=== PATIENT | male | born 1985 | race Caucasian/White ===

== ENCOUNTER 2018-04-16 19:20 | Emergency (ER) | payer SELFPAY ==
[2018-04-16] MEDS ORDERED: LIDOCAINE 1% MPF 5 ML VIAL ONE (19:51)
--- NOTE | 2018-04-16 20:37 | RAD REPORT ---
EXAM DESCRIPTION: RAD - Ankle Right 3 View - 04/16/2018 8:08 pm CLINICAL HISTORY: Trauma to the ankle, anterior laceration COMPARISON: None. FINDINGS: No fracture, dislocation or periosteal reaction. No joint effusion seen. No joint space na rrowing. Soft tissue wound is seen anterior to the tibiotalar joint line. Air is seen in the soft tis sues. No foreign body. IMPRESSION: Anterior soft tissue wound with no foreign body. No acute bone or joint finding seen.
[2018-04-16] MEDS ORDERED: HYDROCODONE/APAP 10/325 TAB ONE (21:25)
--- NOTE | 2018-04-16 21:28 | ER ---
Nurse's Notes [facility] Name: Shon Zapata Age: 32 yrs Sex: Male : 1985 Arrival Date: 04/16/2018 Time: 19:22 Bed 27 Private MD: Diagnosis: Laceration without foreign body, right lower leg Presentation: 04/16 19:30 Presenting complaint: EMS states: tripped over fish tank and has 3-4 inch laceration to tl3 right lower leg, bleeding controlled, covered in wet gauze. Transition of care: patient was not received from another setting of care. Complicating Factors: Glass or an other foreign body is present in the wound. Onset of symptoms was April 16, 2018. Risk Assessment: Do you want to hurt yourself or someone else? Patient reports no desire to harm self or others. Initial Sepsis Screen: Does the patient meet any 2 criteria? No. Patient's initial sepsis screen is negative. Does the patient have a suspected source of infection? No. Patient's initial sepsis screen is negative. Care prior to arrival: dressing applied. 19:30 Method Of Arrival: EMS: [facility] tl3 19:30 Acuity: MANPREET 3 tl3 Triage Assessment: 19:33 General: Appears in no apparent distress. uncomfortable, well groomed, well developed, tl3 well nourished, Behavior is calm, cooperative, appropriate for age. Pain: Complains of pain in medial aspect of right calf Pain currently is 10 out of 10 on a pain scale. EENT: No deficits noted. Neuro: No deficits noted. Level of Consciousness is awake, alert, obeys commands, Oriented to person, place, time, situation, Appropriate for age. Cardiovascular: Patient's skin is warm and dry. Respiratory: Airway is patent Respiratory effort is even, unlabored, Respiratory pattern is regular, symmetrical. GI:. : No signs and/or symptoms were reported regarding the genitourinary system. Derm: Wound noted right lower leg. Injury Description: Laceration sustained to medial aspect of right calf is 2.6 to 7.5 cm long, not bleeding. Historical: - Allergies: 19:33 No Known Allergies; tl3 - Home Meds: 19:33 None [Active]; tl3 - PMHx: 19:33 None; tl3 - Immunization history:: Adult Immunizations up to date. - Social history:: Smoking status: unknown. - Ebola Screening: : No symptoms or risks identified at this time. - Family history:: not pertinent. - Hospitalizations: : No recent hospitalization is reported. Screenin:20 Abuse screen: Denies threats or abuse. Nutritional screening: No deficits noted. tl3 Tuberculosis screening: No symptoms or risk factors identified. Fall Risk None identified. Assessment: 20:20 Reassessment: No changes from previously documented assessment. Patient and/or family tl3 updated on plan of care and expected duration. Pain level reassessed. Patient is alert, oriented x 3, equal unlabored respirations, skin warm/dry/pink. no needs at this time, awaiting xray results. Musculoskeletal: No signs and/or symptoms reported regarding the musculoskeletal system. Injury Description: Laceration. 21:44 Reassessment: Patient appears in no apparent distress at this time. No changes from tl3 previously documented assessment. Patient and/or family updated on plan of care and expected duration. Pain level reassessed. Patient is alert, oriented x 3, equal unlabored respirations, skin warm/dry/pink. pt tolerated suturing very well. Vital Signs: 20:20 BP 150 / 73; Pulse 82; Resp 16; Pulse Ox 98% on R/A; tl3 21:44 BP 133 / 74; Pulse 72; Resp 16; Pulse Ox 100% on R/A; tl3 ED Course: 19:22 Patient arrived in ED. tl3 19:30 Carolina Lofton, GERMAINE is Primary Nurse. tl3 19:32 Triage completed. tl3 19:36 Frank Hunter MD is Attending Physician. rn 20:05 X-ray completed. Portable x-ray completed in exam room. Patient tolerated procedure bb2 well. 20:07 XRAY Ankle RIGHT 3 view In Process Unspecified. EDMS 20:20 Patient has correct armband on for positive identification. tl3 20:20 No provider procedures requiring assistance completed. Patient did not have IV access tl3 during this emergency room visit. 20:52 Irrigation of laceration on medial aspect of right calf irrigated with normal saline tl3 Betadine solution Patient tolerated well. 21:46 Arm band placed on. tl3 Administered Medications: 21:32 Drug: Lidocaine (1 %) 1 vials Volume: 20 ml; Route: Infiltration; Site: wound; tl3 21:32 Drug: [place] 10 mg-325 mg 1 tabs Route: PO; tl3 21:44 Follow up: Response: Medication administered at discharge. tl3 21:40 Drug: Doxycycline 100 mg Route: PO; tl3 21:44 Follow up: Response: Medication administered at discharge. tl3 Outcome: 21:27 Discharge ordered by . rn 21:44 Discharged to home ambulatory. tl3 21:44 Condition: good 21:44 Discharge instructions given to patient, family, Instructed on discharge instructions, follow up and referral plans. medication usage, wound care, Demonstrated understanding of instructions, follow-up care, medications, wound care, Prescriptions given X 1. 21:46 Patient left the ED. tl3 Signatures: Dispatcher [employer] EDMS Frank Hunter MD MD rn Bock, Brittany [facility] Carolina Lofton RN RN tl3
--- NOTE | 2018-04-16 21:28 | EDPHYS ---
Physician Documentation [facility] Name: Shon Zapata Age: 32 yrs Sex: Male : 1985 Arrival Date: 04/16/2018 Time: 19:22 Bed 27 Private MD: ED Physician Frank Hunter HPI: 04/16 21:23 This 32 yrs old Male presents to ER via EMS with complaints of Laceration To rn Leg. 21:23 The patient has a laceration occurred at home. The laceration(s) is(are) located on the rn right leg. Onset: The symptoms/episode began/occurred just prior to arrival. The patient has experienced similar episodes in the past. Reports laceration to right leg, clean aquarium broke, does not feel like any foreign bodies in leg. Tetanus updated earlier this year.. Historical: - Allergies: 19:33 No Known Allergies; tl3 - Home Meds: 19:33 None [Active]; tl3 - PMHx: 19:33 None; tl3 - Immunization history:: Adult Immunizations up to date. - Social history:: Smoking status: unknown. - Ebola Screening: : No symptoms or risks identified at this time. - Family history:: not pertinent. - Hospitalizations: : No recent hospitalization is reported. ROS: 21:23 Constitutional: Negative for fever, chills, and weight loss, MS/Extremity: + laceration rn to right leg 21:23 Neuro: Negative for headache, weakness, numbness, tingling, and seizure. rn Exam: 21:23 Constitutional: This is a well developed, well nourished patient who is awake, alert, rn and in no acute distress. MS/ Extremity: Pulses equal, no cyanosis. Neurovascular intact. Full, normal range of motion. Equal circumference. + 8cm irregular laceration that nicked fascia of distal right pre-tibial region, no tendon laceration, no arterial bleeding. Vital Signs: 20:20 BP 150 / 73; Pulse 82; Resp 16; Pulse Ox 98% on R/A; tl3 21:44 BP 133 / 74; Pulse 72; Resp 16; Pulse Ox 100% on R/A; tl3 Laceration: 21:23 Wound Repair of 8cm ( 3.1in ) subcutaneous laceration to right leg. Distal rn neuro/vascular/tendon intact. Anesthesia: Wound infiltrated with 5 mls of 1% lidocaine. Wound prep: Extensive cleansing by nurse, Wound irrigation by nurse, Wound explored extensively, Copious irrigation. Fascia closed with 3 4-0 Gut using interrupted sutures and sterile technique. Skin closed with 8 3-0 Prolene using interrupted sutures and sterile technique. Dressed with Kerlix. Patient tolerated well. MDM: 19:36 Patient medically screened. rn 21:26 Differential diagnosis: superficial laceration. Data reviewed: vital signs, nurses rn notes, radiologic studies, and as a result, I will discharge patient. Counseling: I had a detailed discussion with the patient and/or guardian regarding: the historical points, exam findings, and any diagnostic results supporting the discharge/admit diagnosis, radiology results, the need for outpatient follow up, to return to the emergency department if symptoms worsen or persist or if there are any questions or concerns that arise at home. Response to treatment: the patient's symptoms have markedly improved after treatment, and as a result, I will discharge patient. Special discussion: I discussed with the patient/guardian in detail that at this point there is no indication for admission to the hospital. It is understood, however, that if the symptoms persist or worsen the patient needs to return immediately for re-evaluation. 04/16 19:50 Order name: XRAY Ankle RIGHT 3 view; Complete Time: 20:43 rn 04/16 19:50 Order name: Suture Tray at Bedside; Complete Time: 21:32 rn 04/16 19:50 Order name: Wound Care; Complete Time: 21:32 rn Administered Medications: 21:32 Drug: Lidocaine (1 %) 1 vials Volume: 20 ml; Route: Infiltration; Site: wound; tl3 21:32 Drug: [place] 10 mg-325 mg 1 tabs Route: PO; tl3 21:44 Follow up: Response: Medication administered at discharge. tl3 21:40 Drug: Doxycycline 100 mg Route: PO; tl3 21:44 Follow up: Response: Medication administered at discharge. tl3 Disposition: 04/16/18 21:27 Discharged to Home. Impression: Laceration without foreign body, right lower leg. - Condition is Stable. - Discharge Instructions: Laceration Care, Adult. - Prescriptions for Doxycycline Monohydrate 100 mg Oral Tablet - take 1 tablet by ORAL route every 12 hours for 10 days; 20 tablet. - Medication Reconciliation Form, Thank You Letter, Antibiotic Education, Prescription Opioid Use form. - Follow up: Private Physician; When: As needed; Reason: Recheck today's complaints, Re-evaluation by your physician. - Problem is new. - Symptoms have improved. Signatures: Dispatcher [employer] EDFrank Glover MD MD rn Lowrey, Tammy, RN RN tl3 Corrections: (The following items were deleted from the chart) 21:46 21:27 04/16/2018 21:27 Discharged to Home. Impression: Laceration without foreign body, tl3 right lower leg. Condition is Stable. Forms are Medication Reconciliation Form, Thank You Letter, Antibiotic Education, Prescription Opioid Use. Follow up: Private Physician; When: As needed; Reason: Recheck today's complaints, Re-evaluation by your physician. Problem is new. Symptoms have improved. rn
[2018-04-16] MEDS ORDERED: DOXYCYCLINE 100 MG CAP PO ONE (21:38)
== END 2018-04-16 21:46 | disposition home or self-care (01) ==
LOC: ER 19:20
PROC: 0JQN0ZZ Repair Right Lower Leg Subcutaneous Tissue and Fascia, Open Approach (ICD-10-PCS; principal; 2018-04-16)
DX: S81.811A Laceration without foreign body, right lower leg, initial encounter (principal); W25.XXXA Contact with sharp glass, initial encounter; Y93.89 Activity, other specified; Y92.9 Unspecified place or not applicable
CPT/HCPCS: 99284

== ENCOUNTER 2021-12-28 23:14 | Emergency (ER) | payer SELFPAY ==
[2021-12-28] MEDS ORDERED: MORPHINE 4 MG/ML SYR ONE (23:48)
[2021-12-28] MEDS ORDERED: NA CHLORIDE 0.9% 1,000 ML ONE (23:48)
[2021-12-28] MEDS ORDERED: FAMOTIDINE 20 MG/2 ML VIAL IV ONE (23:48)
[2021-12-28] MEDS ORDERED: ONDANSETRON 4 MG/2 ML VIAL ONE (23:48)
[2021-12-29] MEDS ORDERED: MEPERIDINE HCL 25 MG/ML SYR ONE (00:11)
[2021-12-29 00:20] LABS: Absolute Lymphocytes (CBC) 1.5 K/uL (0.7-4.9); Hematocrit 45.4 % (39.6-49.0); Lymphocytes % 16.8 % (15.3-44.8); MPV 8.2 fL (7.6-11.3); RBC Red Blood Cell Count 5.11 M/uL (4.33-5.43)
[2021-12-29 00:29] LABS: Albumin 3.8 g/dL (3.4-5.0); Bilirubin Total 0.3 mg/dL (0.2-1.0); Protein, Total 7.2 g/dL (6.4-8.2)
--- NOTE | 2021-12-29 01:48 | EDPHYS ---
Physician Documentation [facility] Name: Shon Zapata Age: 36 yrs Sex: Male : 1985 Arrival Date: 12/28/2021 Time: 23:16 Bed 6 Private MD: ED Physician Frank Hunter HPI: 12/28 23:48 This 36 yrs old Male presents to ER via Ambulatory with complaints of Abdominal Pain. rn 23:48 The patient presents with abdominal pain in the left lower quadrant. Onset: The rn symptoms/episode began/occurred 1 week(s) ago. The symptoms do not radiate. Associated signs and symptoms: Pertinent positives: nausea, Pertinent negatives: blood in stools, chest pain, constipation, diarrhea, dysuria, fever, shortness of breath, testicular pain, vomiting, vomiting blood. Modifying factors: The symptoms are alleviated by nothing, the symptoms are aggravated by touching the area. Severity of pain: At its worst the pain was moderate in the emergency department the pain is unchanged. The patient has experienced similar episodes in the past. The patient has not recently seen a physician. Pt reports left sided abd pain, began about 1 week ago, intermittent, similar episodes in past, but worse tonight. No urinary complaints. No hx of kidney stones. No trauma. No fever. No testicular pain or swelling. No drug use. States other times the pain went away on its own.. Historical: - Allergies: 23:29 No Known Allergies; jb4 - Home Meds: 23:29 None [Active]; jb4 - PMHx: 23:29 Unable to Obtain; jb4 - PSHx: 23:29 None; jb4 - Immunization history:: Adult Immunizations up to date. - Social history:: Smoking status: Patient denies any tobacco usage or history of. Patient uses street drugs, marijuana. - Family history:: not pertinent. - Hospitalizations: : No recent hospitalization is reported. ROS: 23:50 Constitutional: Negative for fever, chills, and weight loss, Eyes: Negative for injury, rn pain, redness, and discharge, Neck: Negative for injury, pain, and swelling, Cardiovascular: Negative for chest pain, palpitations, and edema, Respiratory: Negative for shortness of breath, cough, wheezing, and pleuritic chest pain, Abdomen/GI: + left sided and lower abd pain Back: Negative for injury and pain, : Negative for injury, bleeding, discharge, and swelling, MS/Extremity: Negative for injury and deformity, Skin: Negative for injury, rash, and discoloration, Neuro: Negative for headache, weakness, numbness, tingling, and seizure. Exam: 23:50 Constitutional: Thin male, appears uncomfortable but non-toxic, holding abdomen. rn Head/Face: Normocephalic, atraumatic. Eyes: Periorbital areas with no swelling, redness, or edema. Cardiovascular: Regular rate and rhythm. No pulse deficits. Respiratory: No increased work of breathing, no retractions or nasal flaring. Abdomen/GI: soft, + LUQ and LLQ tenderness, no peritoneal signs or masses. Skin: Warm, dry MS/ Extremity: Pulses equal, no cyanosis Neuro: Awake and alert, GCS 15 Vital Signs: 23:27 BP 134 / 89; Pulse 79; Resp 16; Temp 98.8(TE); Pulse Ox 100% on R/A; Weight 63.5 kg jb4 (R); Height 5 ft. 11 in. (180.34 cm) (R); Pain 7/10; 12/29 00:01 BP 129 / 94; Pulse 62; Resp 18 S; Pulse Ox 100% on R/A; as6 01:37 BP 135 / 94; Pulse 65; Resp 18 S; Pulse Ox 100% on R/A; as6 02:00 BP 137 / 96; Pulse 67; Resp 18 S; Pulse Ox 100% on R/A; as6 12/28 23:27 Body Mass Index 19.53 (63.50 kg, 180.34 cm) [facility] MDM: 12/28 23:22 Patient medically screened. rn 12/29 01:47 Differential diagnosis: appendicitis, bowel obstruction, diverticulitis, rn gastroesophageal reflux disease, non-specific abd pain, pancreatitis, Peptic Ulcer Disease. Data reviewed: vital signs, nurses notes, lab test result(s), radiologic studies, CT scan, and as a result, I will discharge patient. Counseling: I had a detailed discussion with the patient and/or guardian regarding: the historical points, exam findings, and any diagnostic results supporting the discharge/admit diagnosis, lab results, radiology results, the need for outpatient follow up, to return to the emergency department if symptoms worsen or persist or if there are any questions or concerns that arise at home. Response to treatment: the patient's symptoms have mildly improved after treatment, and as a result, I will discharge patient. Special discussion: Based on the patient's Hx, exam, and Dx evaluation, there is no indication for emergent surgery or inpatient Tx. It is understood by the patient/guardian that if the Sx's persist or worsen they need to return immediately for re-evaluation. I discussed with the patient/guardian in detail that at this point there is no indication for admission to the hospital. It is understood, however, that if the symptoms persist or worsen the patient needs to return immediately for re-evaluation. Based on the history and exam findings, there is no indication for further emergent testing or inpatient evaluation. I discussed with the patient/guardian the need to see the investment sales assistant for further evaluation of the symptoms. ED course: No acute findings in bloodwork or Ct abdomen. Recurrent abd pain in otherwise healthy young man, recommend antacids and GI f/u for further eval. Pt denies famhx of IBD.. 12/28 23:36 Order name: CBC with Diff; Complete Time: 00:30 rn 12/28 23:36 Order name: CMP; Complete Time: 00:30 rn 12/28 23:36 Order name: Lipase; Complete Time: 00:30 rn 12/28 23:36 Order name: CT Abd/Pelvis - IV Contrast Only rn 12/28 23:36 Order name: IV Saline Lock; Complete Time: 23:58 rn 12/28 23:36 Order name: Labs collected and sent; Complete Time: 23:58 rn Administered Medications: 12/28 23:40 Drug: Pepcid (famotidine) 20 mg Route: IVP; Site: right forearm; 12/29 02:13 Follow up: Response: No adverse reaction as12/28 23:40 Drug: Zofran (Ondansetron) 4 mg Route: IVP; Site: right forearm; 12/29 02:13 Follow up: Response: No adverse reaction 12/28 23:40 Drug: NS 0.9% 1000 ml Route: IV; Rate: 1000 ml; Site: right forearm; 12/29 02:13 Follow up: Response: No adverse reaction; IV Status: Completed infusion; IV Intake: as6 1000ml 12/28 23:59 Not Given (Patient Refused): morphine 4 mg IVP once as6 12/29 00:09 Drug: Demerol (meperidine) 25 mg Route: IVP; Site: right forearm; as6 02:13 Follow up: Response: No adverse reaction; RASS: Alert and Calm (0) as6 Disposition Summary: 12/29/21 01:48 Discharge Ordered Location: Home rn Problem: an acute exacerbation rn Symptoms: have improved rn Condition: Stable rn Diagnosis - Abdominal pain, unspecified rn Followup: rn - With: Jeronimo Rizo MD - When: As needed - Reason: Recheck today's complaints, Re-evaluation by your physician Discharge Instructions: - Discharge Summary Sheet rn - Abdominal Pain, Adult rn - Pain Without a Known Cause rn Forms: - Medication Reconciliation Form rn - Thank You Letter rn - Antibiotic internal medicine nurse - Prescription Opioid Use rn Signatures: Dispatcher [employer] Frank Jean MD MD rn Bryson, James RN RN jb4 Simone Vieyra RN RN as6
--- NOTE | 2021-12-29 01:48 | ER ---
Nurse's Notes [facility] Name: Shon Zapata Age: 36 yrs Sex: Male : 1985 Arrival Date: 12/28/2021 Time: 23:16 Bed 6 Private MD: Diagnosis: Abdominal pain, unspecified Presentation: 12/28 23:27 Chief complaint: Patient states: I am having Left lower abdominal pain that comes and jb4 goes. N/V/D reported. Coronavirus screen: At this time, the client does not indicate any symptoms associated with coronavirus-19. Ebola Screen: No symptoms or risks identified at this time. Initial Sepsis Screen: Does the patient meet any 2 criteria? No. Patient's initial sepsis screen is negative. Does the patient have a suspected source of infection? Yes:. Risk Assessment: Do you want to hurt yourself or someone else? Patient reports no desire to harm self or others. Onset of symptoms was December 28, 2021. Transition of care: patient was not received from another setting of care. 23:27 Method Of Arrival: Ambulatory jb4 23:27 Acuity: MANPREET 3 jb4 Historical: - Allergies: 23:29 No Known Allergies; jb4 - Home Meds: 23:29 None [Active]; jb4 - PMHx: 23:29 Unable to Obtain; jb4 - PSHx: 23:29 None; jb4 - Immunization history:: Adult Immunizations up to date. - Social history:: Smoking status: Patient denies any tobacco usage or history of. Patient uses street drugs, marijuana. - Family history:: not pertinent. - Hospitalizations: : No recent hospitalization is reported. Screenin/19 00:00 Abuse screen: Denies threats or abuse. Denies injuries from another. Nutritional as6 screening: No deficits noted. Tuberculosis screening: No symptoms or risk factors identified. Fall Risk None identified. Assessment: 12/28 23:35 General: Appears in no apparent distress. uncomfortable, ill, slender, Behavior is as6 calm, cooperative. Pain: Complains of pain in left lower quadrant Quality of pain is described as crampy, sharp, Is intermittent. Neuro: Level of Consciousness is awake, alert, obeys commands, Oriented to person, place, time, situation. Cardiovascular: JVD is absent Patient's skin is warm and dry. Respiratory: Respiratory effort is even, unlabored, Respiratory pattern is regular, symmetrical. GI: Reports lower abdominal pain, diarrhea, nausea, vomiting. Derm: Skin is intact. 12/29 01:38 Reassessment: Patient appears in no apparent distress at this time. as6 Vital Signs: 12/28 23:27 BP 134 / 89; Pulse 79; Resp 16; Temp 98.8(TE); Pulse Ox 100% on R/A; Weight 63.5 kg jb4 (R); Height 5 ft. 11 in. (180.34 cm) (R); Pain 7/10; 12/29 00:01 BP 129 / 94; Pulse 62; Resp 18 S; Pulse Ox 100% on R/A; as6 01:37 BP 135 / 94; Pulse 65; Resp 18 S; Pulse Ox 100% on R/A; as6 02:00 BP 137 / 96; Pulse 67; Resp 18 S; Pulse Ox 100% on R/A; as6 12/28 23:27 Body Mass Index 19.53 (63.50 kg, 180.34 cm) jb4 ED Course: 12/28 23:16 Patient arrived in ED. bp1 23:22 Frank Hunter MD is Attending Physician. rn 23:29 Triage completed. jb4 23:29 Arm band placed on right wrist. jb4 23:35 Inserted saline lock: 20 gauge in right forearm, using aseptic technique. Blood as6 collected. 23:40 Simone Vieyra, GERMAINE is Primary Nurse. as6 12/29 00:00 Bed in low position. Call light in reach. Side rails up X 1. Adult w/ patient. Pulse ox as6 on. NIBP on. Warm blanket given. 01:07 CT Abd/Pelvis - IV Contrast Only In Process Unspecified. EDMS 01:48 Jeronimo Rizo MD is Referral Physician. rn 02:13 No provider procedures requiring assistance completed. IV discontinued, intact, as6 bleeding controlled, No redness/swelling at site. Pressure dressing applied. Administered Medications: 12/28 23:40 Drug: Pepcid (famotidine) 20 mg Route: IVP; Site: right forearm; as6 12/29 02:13 Follow up: Response: No adverse reaction as6 12/28 23:40 Drug: Zofran (Ondansetron) 4 mg Route: IVP; Site: right forearm; as6 12/29 02:13 Follow up: Response: No adverse reaction as6 12/28 23:40 Drug: NS 0.9% 1000 ml Route: IV; Rate: 1000 ml; Site: right forearm; 6 12/29 02:13 Follow up: Response: No adverse reaction; IV Status: Completed infusion; IV Intake: as6 1000ml 12/28 23:59 Not Given (Patient Refused): morphine 4 mg IVP once 12/29 00:09 Drug: Demerol (meperidine) 25 mg Route: IVP; Site: right forearm; as6 02:13 Follow up: Response: No adverse reaction; RASS: Alert and Calm (0) as6 Medication: 02:14 VIS not applicable for this client. as6 Intake: 02:13 IV: 1000ml; Total: 1000ml. as6 Outcome: 01:48 Discharge ordered by . rn 02:14 Discharged to home ambulatory, with family. as6 02:14 Condition: stable 02:14 Discharge instructions given to patient, Instructed on discharge instructions, follow up and referral plans. Demonstrated understanding of instructions, follow-up care. 02:16 Patient left the ED. as6 Signatures: Dispatcher [employer] EDMS Frank Hunter MD MD rn Bryson, James RN RN jb4 Nani Medina Ashby, RN RN as6
[2021-12-29 02:21] VITALS: TEMP 98.8; O2SAT 100
[2021-12-29 02:27] VITALS: BP 137/96
--- NOTE | 2021-12-29 11:31 | RAD REPORT ---
EXAM DESCRIPTION: CT - Abdomen Pelvis W Contrast - 12/29/2021 4:20 am CLINICAL HISTORY: The patient is 36 years old and is Male; Abdominal pain, acute, nonlocalized TECHNIQUE: Axial computed tomography images of the abdomen and pelvis with intravenous contrast. S agittal and coronal reformatted images were created and reviewed. This CT exam was performed using one or more of the following dose reduction techniques: automated exposure control, adjustment of t he mA and/or kV according to patient size, and/or use of iterative reconstruction technique. COMPARISON: No relevant prior studies available. FINDINGS: LUNG BASES: Unremarkable. No mass. No consolidation. ABDOMEN: LIVER: Unremarkable. No mass. GALLBLADDER AND BILE DUCTS: No calcified stones. No ductal dilation. PANCREAS: No ductal dilation. No mass. SPLEEN: Unremarkable. ADRENALS: Unremarkable. No mass. KIDNEYS AND URETERS: Unremarkable. The kidneys enhance symmetrically. No obstructing renal or ur eteral calculus is seen. No hydronephrosis or hydroureter. No perinephric fluid or stranding. STOMACH AND BOWEL: The stomach is filled with fluid and air. The small bowel is relatively martha l in caliber. The distal small bowel is fluid-filled. Stool is present throughout colon. There is no bowel obstruction. PELVIS: APPENDIX: The appendix is normal in caliber without surrounding inflammation. BLADDER: The bladder is decompressed. REPRODUCTIVE: Unremarkable as visualized. ABDOMEN and PELVIS: INTRAPERITONEAL SPACE: Unremarkable. No free air. No significant fluid collection. BONES/JOINTS: No acute fracture. SOFT TISSUES: The soft tissues are normal. VASCULATURE: Unremarkable. No abdominal aortic aneurysm. LYMPH NODES: Unremarkable. No enlarged lymph nodes. IMPRESSION: No acute findings on this contrasted CT of the abdomen and pelvis to explain the patient 's symptoms. Electronically signed by: Domenica Love MD 12/29/2021 1:26 AM CDT Due to temporary technical issues with the PACS/Fluency reporting system, reports are being signed by the in house radiologist without review as a courtesy to ensure prompt reporting. The interpreting r adiologist is fully responsible for the content of the report.
== END 2021-12-29 02:16 | disposition home or self-care (01) ==
LOC: ER 23:14
DX: R10.32 Left lower quadrant pain (principal); R10.12 Left upper quadrant pain; R11.0 Nausea
CPT/HCPCS: 36415; 74177; 80053; 83690; 85025; 96361; 96374; 96375; 99284; J2175; J2405; J3490; J7030; Q9967

== ENCOUNTER 2023-04-24 17:38 | Emergency (ER) | payer SELFPAY ==
[2023-04-24] MEDS ORDERED: LIDOCAINE 1% MPF 30 ML VIAL ONE (18:22)
[2023-04-24] MEDS ORDERED: LIDOCAINE 2% W/EPI 1:200,000 MPF 20 ML VIAL IM ONE (18:24)
[2023-04-24] MEDS ORDERED: CEPHALEXIN 250 MG CAP ONE ×2 (18:27→18:38)
--- NOTE | 2023-04-24 18:35 | ER ---
Nurse's Notes [facility] Name: Shon Zapata Age: 37 yrs Sex: Male : 1985 Arrival Date: 04/24/2023 Time: 17:38 Bed 16 Private MD: Diagnosis: Arm Laceration Left/ Open wound of forearm;Laceration without foreign body of left forearm-WITH MUSCLE INVOLVMENT Presentation: 04/24 17:52 Chief complaint: Patient states: he fell off a tin roof and cut his arm on the metal. ap3 patient presents with his left arm wrapped in a tshirt. Coronavirus screen: At this time, the client does not indicate any symptoms associated with coronavirus-19. Ebola Screen: No symptoms or risks identified at this time. Initial Sepsis Screen: Does the patient meet any 2 criteria? HR > 90 bpm. Does the patient have a suspected source of infection? Yes: Skin breakdown/wound. Risk Assessment: Do you want to hurt yourself or someone else? Patient reports no desire to harm self or others. Onset of symptoms was April 24, 2023. 17:52 Method Of Arrival: Ambulatory ap3 17:52 Acuity: MANPREET 3 ap3 Triage Assessment: 17:53 General: Appears in no apparent distress. Behavior is calm, cooperative, appropriate ap3 for age. Pain: Complains of pain in dorsal aspect of left forearm Pain currently is 4 out of 10 on a pain scale. at worst was 6 out of 10 on a pain scale. Neuro: Level of Consciousness is awake, alert, obeys commands, Oriented to person, place, time, situation, Appropriate for age. Cardiovascular: Patient's skin is warm and dry. Respiratory: Airway is patent Respiratory effort is even, unlabored, Respiratory pattern is regular, symmetrical. Historical: - Allergies: 17:53 No Known Allergies; ap3 - Home Meds: 17:53 None [Active]; ap3 - PMHx: 17:53 None; ap3 - Immunization history:: Last tetanus immunization: up to date Last tetanus immunization: < 5 years ago. - Social history:: Smoking status: Patient denies any tobacco usage or history of. Patient uses street drugs, marijuana. Screenin:54 Abuse screen: Denies threats or abuse. Nutritional screening: No deficits noted. ap3 Tuberculosis screening: No symptoms or risk factors identified. 18:00 [facility] ED Fall Risk Assessment (Adult) History of falling in the last 3 months, aa5 including since admission Yes- single mechanical fall (1 pt) Confusion or Disorientation No (0 pts) Intoxicated or Sedated No (0 pts) Impaired Gait No (0 pts) Mobility Assist Device Used No (0 pt) Altered Elimination No (0 pt) Score/Fall Risk Level 0 - 2 = Low Risk Oriented to surroundings, Maintained a safe environment, Educated pt \T\ family on fall prevention, incl call for assistance when getting out of bed. Assessment: 18:00 Reassessment: Gauze with saline applied to left FA laceration, no active bleeding aa5 noted. . 18:00 General: Appears uncomfortable, Behavior is calm, cooperative. Pain: Complains of pain aa5 in dorsal aspect of left forearm Pain currently is 4 out of 10 on a pain scale. Quality of pain is described as throbbing, Is continuous. Neuro: Level of Consciousness is awake, alert, obeys commands, Oriented to person, place, time, situation. Cardiovascular: Patient's skin is warm and dry. Respiratory: Airway is patent Respiratory effort is even, unlabored, Respiratory pattern is regular, symmetrical. GI: No signs and/or symptoms were reported involving the gastrointestinal system. : No signs and/or symptoms were reported regarding the genitourinary system. EENT: No signs and/or symptoms were reported regarding the EENT system. Derm: Skin is pink, warm \T\ dry. Musculoskeletal: Range of motion: intact in all extremities. Injury Description: Laceration sustained to dorsal aspect of left forearm is clean, not bleeding, measuring approximately 2 in long. 18:43 Reassessment: To bedside, Neosporin applied to wound, non-adherent pad applied to rs5 wound, wrapped with Kerlix and secured with tape. Pt tolerated dressing well. Vital Signs: 17:52 BP 130 / 91; Pulse 100; Resp 17; Temp 99; Pulse Ox 100% ; Weight 68.04 kg; Height 5 ft. ap3 10 in. ; Pain 4/10; 17:52 Body Mass Index 21.52 (68.04 kg, 177.8 cm) ap3 17:52 Pain Scale: Adult ap3 ED Course: 17:40 Patient arrived in ED. mr 17:53 Triage completed. ap3 17:54 Arm band placed on right wrist. ap3 17:56 Gabriel Spencer MD is Attending Physician. [facility] 17:59 Barbara Soares, RN is Primary Nurse. aa5 18:00 Patient has correct armband on for positive identification. Bed in low position. Call aa5 light in reach. Side rails up X 1. Adult w/ patient. 18:14 Assist provider with laceration repair on dorsal aspect of left forearm using sutures. aa5 Set up tray. Performed by Gabriel Spencer MD Patient tolerated poorly. 19:00 Report given to GERMAINE Cook. aa5 19:11 Patient did not have IV access during this emergency room visit. bp Administered Medications: 18:14 Drug: Lidocaine-Epinephrine Infiltration -2 % (1:100,000) 10 ml {Note: administered to aa5 left FA by MD.} Route: Infiltration; 18:30 Drug: Cephalexin PO 500 mg Route: PO; rs5 19:03 Follow up: Response: No adverse reaction bp 18:42 Drug: Ltdqlgfv-Rqpiiremdl-Wkfmdkgfo Topical Ointment 1 application Route: Topical; rs5 Site: wound; 18:58 Not Given (Physician Discretion): Tetanus Toxoid,Adsorbed IM 0.5 ml IM once; Provide aa5 Vaccine Information Statement (VIS). Medication: 19:11 VIS not applicable for this client. bp Outcome: 18:35 Discharge ordered by . [facility] 19:11 Discharged to home ambulatory. bp 19:11 Condition: stable 19:11 Discharge instructions given to patient, Instructed on discharge instructions, follow up and referral plans. medication usage, wound care, Demonstrated understanding of instructions, follow-up care, medications, wound care, Prescriptions given X 2. 19:12 Patient left the ED. bp Signatures: Gabriel Spencer MD MD cha Rivera, Mary mr Barbara Soares, RN RN aa5 Joey Swain, RN RN bp Sandee Hernandes RN RN ap3 Rajesh Jimenez RN RN rs5 Corrections: (The following items were deleted from the chart) 19:11 19:03 To radiology for Forearm Left+RAD.RAD.BRZ. bp EDMS
--- NOTE | 2023-04-24 18:35 | EDPHYS ---
Physician Documentation [facility] Name: Shon Zapata Age: 37 yrs Sex: Male : 1985 Arrival Date: 04/24/2023 Time: 17:38 Bed 16 Private MD: ED Physician Gabriel Spencer HPI: 04/24 18:30 This 37 yrs old Male presents to ER via Ambulatory with complaints of Fall gideon Injury, Laceration To Arm. 18:30 Details of fall: The patient fell from an upright position, while standing. Onset: The gideon symptoms/episode began/occurred just prior to arrival. Associated injuries: The patient sustained laceration, 4 cm(s). Severity of symptoms: At their worst the symptoms were mild, in the emergency department the symptoms are unchanged. The patient has not experienced similar symptoms in the past. Historical: - Allergies: 17:53 No Known Allergies; ap3 - Home Meds: 17:53 None [Active]; ap3 - PMHx: 17:53 None; ap3 - Immunization history:: Last tetanus immunization: up to date Last tetanus immunization: < 5 years ago. - Social history:: Smoking status: Patient denies any tobacco usage or history of. Patient uses street drugs, marijuana. ROS: 18:30 Constitutional: Negative for fever, chills, and weight loss, Eyes: Negative for injury, gideon pain, redness, and discharge, ENT: Negative for injury, pain, and discharge, Neck: Negative for injury, pain, and swelling, Cardiovascular: Negative for chest pain, palpitations, and edema, Respiratory: Negative for shortness of breath, cough, wheezing, and pleuritic chest pain, Abdomen/GI: Negative for abdominal pain, nausea, vomiting, diarrhea, and constipation, Back: Negative for injury and pain, : Negative for injury, bleeding, discharge, and swelling, Skin: Negative for injury, rash, and discoloration, Neuro: Negative for headache, weakness, numbness, tingling, and seizure, Psych: Negative for depression, anxiety, suicide ideation, homicidal ideation, and hallucinations, Allergy/Immunology: Negative for hives, rash, and allergies, Endocrine: Negative for neck swelling, polydipsia, polyuria, polyphagia, and marked weight changes, Hematologic/Lymphatic: Negative for swollen nodes, abnormal bleeding, and unusual bruising. 18:30 MS/extremity: Positive for laceration, of the dorsal aspect of left forearm and palmar aspect of left forearm. Exam: 18:30 Constitutional: This is a well developed, well nourished patient who is awake, alert, gideon and in no acute distress. Head/Face: Normocephalic, atraumatic. Eyes: Pupils equal round and reactive to light, extra-ocular motions intact. Lids and lashes normal. Conjunctiva and sclera are non-icteric and not injected. Cornea within normal limits. Periorbital areas with no swelling, redness, or edema. ENT: Nares patent. No nasal discharge, no septal abnormalities noted. Tympanic membranes are normal and external auditory canals are clear. Oropharynx with no redness, swelling, or masses, exudates, or evidence of obstruction, uvula midline. Mucous membranes moist. Neck: Trachea midline, no thyromegaly or masses palpated, and no cervical lymphadenopathy. Supple, full range of motion without nuchal rigidity, or vertebral point tenderness. No Meningismus. Chest/axilla: Normal chest wall appearance and motion. Nontender with no deformity. No lesions are appreciated. Cardiovascular: Regular rate and rhythm with a normal S1 and S2. No gallops, murmurs, or rubs. Normal PMI, no JVD. No pulse deficits. Respiratory: Lungs have equal breath sounds bilaterally, clear to auscultation and percussion. No rales, rhonchi or wheezes noted. No increased work of breathing, no retractions or nasal flaring. Abdomen/GI: Soft, non-tender, with normal bowel sounds. No distension or tympany. No guarding or rebound. No evidence of tenderness throughout. Back: No spinal tenderness. No costovertebral tenderness. Full range of motion. Male : Normal genitalia with no discharge or lesions. Skin: Warm, dry with normal turgor. Normal color with no rashes, no lesions, and no evidence of cellulitis. Neuro: Awake and alert, GCS 15, oriented to person, place, time, and situation. Cranial nerves II-XII grossly intact. Motor strength 5/5 in all extremities. Sensory grossly intact. Cerebellar exam normal. Normal gait. Psych: Awake, alert, with orientation to person, place and time. Behavior, mood, and affect are within normal limits. 18:30 Musculoskeletal/extremity: Extremities: noted in the dorsal aspect of left forearm: decreased ROM, pain, ROM: intact in all extremities, full active range of motion, full passive range of motion, Circulation is intact in all extremities. Sensation intact. Compartment Syndrome exam of affected extremity: is normal. Joints: All joints appear normal with full range of motion. Tendon exam: specific tendon testing normal through active and passive range of motion Vital Signs: 17:52 BP 130 / 91; Pulse 100; Resp 17; Temp 99; Pulse Ox 100% ; Weight 68.04 kg; Height 5 ft. ap3 10 in. ; Pain 4/10; 17:52 Body Mass Index 21.52 (68.04 kg, 177.8 cm) ap3 17:52 Pain Scale: Adult ap3 MDM: 17:56 Patient medically screened. [facility] 18:30 Differential diagnosis: closed fracture, contusion, abrasion. Differential diagnosis: gideon laceration. Data reviewed: vital signs, nurses notes, radiologic studies, plain films. Consideration of Admission/Observation Escalation of care including admission/observation considered. I considered the following discharge prescriptions or medication management in the emergency department Medications were administered in the Emergency Department. See MAR. Test considered but Not performed: Labs: NO LABS. Historians other than the Patient: Family Member: MOM, INFORMED. 04/24 18:14 Order name: Dressing - Wound; Complete Time: 18:21 [facility] 04/24 18:14 Order name: Gloves, Sterile; Complete Time: 18:21 [facility] 04/24 18:14 Order name: Setup Suture Tray; Complete Time: 18:14 [facility] 04/24 18:29 Order name: Ice pack; Complete Time: 18:42 [facility] 04/24 18:29 Order name: Misc. Order: PRESSURE DRESS; Complete Time: 18:42 [facility] Administered Medications: 18:14 Drug: Lidocaine-Epinephrine Infiltration -2 % (1:100,000) 10 ml {Note: administered to aa5 left FA by .} Route: Infiltration; 18:30 Drug: Cephalexin PO 500 mg Route: PO; rs5 19:03 Follow up: Response: No adverse reaction bp 18:42 Drug: Zsurqcal-Yeiisgxowr-Crgqcdmjy Topical Ointment 1 application Route: Topical; rs5 Site: wound; 18:58 Not Given (Physician Discretion): Tetanus Toxoid,Adsorbed IM 0.5 ml IM once; Provide aa5 Vaccine Information Statement (VIS). Disposition Summary: 04/24/23 18:35 Discharge Ordered Location: Home [facility] Problem: new [facility] Symptoms: have improved [facility] Condition: Stable [facility] Diagnosis - Arm Laceration Left/ Open wound of forearm gideon - Laceration without foreign body of left forearm - WITH MUSCLE INVOLVMENT gideon Followup: gideon - With: Private Physician - When: 7 - 10 days - Reason: Recheck today's complaints, Staple/Suture removal, Re-evaluation by your physician Discharge Instructions: - Discharge Summary Sheet gideon - Laceration Care, Adult gideon - Laceration Care, Adult, [id number] [facility] Forms: - Medication Reconciliation Form [facility] - Thank You Letter [facility] - Antibiotic Education [facility] - Prescription Opioid Use [facility] - Patient Portal Instructions [facility] - Leadership Thank You Letter [facility] Prescriptions: - Cephalexin 500 mg Oral Capsule - take 1 capsule by ORAL route every 6 hours for 10 days; 40 capsule; Refills: 0, [facility] Product Selection Permitted - Ibuprofen 600 mg Oral Tablet - take 1 tablet by ORAL route every 6 hours As needed take with food; 30 tablet; [facility] Refills: 0, Product Selection Permitted Signatures: Dispatcher [employer] EDMS Gabriel Spencer MD MD cha Calderon, Audri, RN RN aa5 Sandee Hernandes RN RN ap3 Rajesh Jimenez RN RN rs5 Joey Swain RN bp Corrections: (The following items were deleted from the chart) 19:11 18:30 Forearm Left+RAD.RAD.BRZ ordered. EDVA EDMS
[2023-04-24 19:23] VITALS: BP 130/91; TEMP 99; O2SAT 100
== END 2023-04-24 19:12 | disposition home or self-care (01) ==
LOC: ER 17:38
DX: S51.812A Laceration without foreign body of left forearm, initial encounter (principal)
CPT/HCPCS: 99283; J2001